=== PATIENT | female | born 1990 | race Caucasian/White ===

== ENCOUNTER 2018-11-06 20:54 | Inpatient (IN) | payer OTHER ==
[~2018-11-06] VITALS: Ht 180.3 cm; Wt 130.0 kg
--- NOTE | ~2018-11-06 | OR ---
[facility] [address] [place], [place] [address] Draft DATE OF OPERATION: 11/07/2018 SURGEON: Martha Colón MD EVENT MANAGEMENT CONSULTANT: Varun Dias MD PREOPERATIVE DIAGNOSES: Term , arrest of descent, and morbid obesity. POSTOPERATIVE DIAGNOSES: Term , arrest of descent, morbid obesity, delivered. PROCEDURE: Primary section with low segment transverse uterine incision with a J extension. ANESTHESIA: Epidural. ESTIMATED BLOOD LOSS: 700 mL. DRAINS: Ndiaye catheter. INDICATIONS AND FINDINGS: The patient is a 28-year-old female, 1, para 0, who was admitted in active labor at 39 weeks. Patient's course was complicated by her weight gain as well as a severe anxiety disorder with PTSD. The patient received an epidural during her labor. She progressed nicely to complete. After reaching complete, she did not push well and was unable to comply with pushing well. Patient then stated that she could not push anymore and requested section. She was counseled and PARQ done, and the section was done per her request. She was delivered of a little girl via lower segment transverse uterine incision, but with a J extension. The baby was in the ROT position, but with a deep transverse arrest. The head could not be elevated and the baby was ultimately delivered as a breech with Apgars of 4, 8, and 9. Cord gases were done, which were . The uterus, tubes, ovaries, and placenta otherwise appeared normal. DESCRIPTION OF PROCEDURE: PATIENT NAME: KI SIMPSON OPERATIVE REPORT DATE OF : [birth year] REPORT #: [id number] PHYSICIAN: MARTHA COLÓN MD PCP: MARTHA COLÓN MD REPORT IS CONFIDENTIAL AND NOT TO BE RELEASED WITHOUT AUTHORIZATION [facility] [address] [place] [address] Draft The patient was prepped and draped in the supine position. A Pfannenstiel skin incision was made and carried down through the fascia. The incision was extended laterally. The inferior and superior fascial flaps were then created. The muscles were bluntly divided and the peritoneum was opened bluntly, and the incision extended superiorly and inferiorly. The Moris retractor was placed. Inspection of the uterine wall showed that there was some narrowing just above the peritoneal reflection consistent with a Bandl's band. The incision was made at the upper aspect of the peritoneal reflection on the uterus. An attempt was made to bring the baby's head out of the pelvis, but this could not be accomplished secondary to the deep arrest. Subsequently to this, the Moris retractor was removed and a small J was made on the patient's left side. At that point, the baby was delivered as a breech and handed off to the pediatric staff in attendance. Following this, the placenta was removed manually. The uterus was explored with a lap tape assuring no remaining fragments. The edges of the incision were identified and the uterus was closed in 2 layers using #0 Monocryl. The first layer was a running locking stitch and the second was a vertical imbricating stitch. Additional sutures required J extension for control of bleeding. The abdomen was then copiously irrigated, inspected, and found to be hemostatic. The retractor was removed again and an ACell graft was laid over the lower segment to aid in healing. The peritoneum was identified and it was then closed with a running suture of 3-0 Vicryl. The muscles were brought together with interrupted sutures of 0 Vicryl. Bleeding points were controlled with cautery. This layer was then irrigated and good hemostasis was noted. The ACell powder was sprinkled over the muscles to aid in healing at this point. The fascia was then closed from each angle to the midline. The subcutaneous tissue was irrigated and bleeding points controlled with cautery. Because of the depth of the subcu another ACell powder was sprinkled in the subcu space to aid in healing. The deep space was closed with interrupted sutures of 3-0 Vicryl. The skin was closed with ida. All sponge and needle counts were correct. She tolerated the procedure well and was taken to the recovery room in good condition. MD SOURAV Erwin/MODL /[id number] cc: Varun Dias MD PATIENT NAME: KI SIMPSON OPERATIVE REPORT DATE OF : [birth year] REPORT #: [id number] PHYSICIAN: MARTHA COLÓN MD PCP: MARTHA COLÓN MD REPORT IS CONFIDENTIAL AND NOT TO BE RELEASED WITHOUT AUTHORIZATION [address] [address] [facility] Copies: VARUN DIAS MD ~ PATIENT NAME: KI SIMPSON OPERATIVE REPORT DATE OF : 86 REPORT #: [id number] PHYSICIAN: MARTHA COLÓN MD PCP: MARTHA COLÓN MD REPORT IS CONFIDENTIAL AND NOT TO BE RELEASED WITHOUT AUTHORIZATION
[~2018-11-06 20:54] MED LIST: CLONIDINE HCL0.1 MG PO; ESCITALOPRAM OX20 MG PO; METOCLOPRAMIDE H5 M1 PO; NEXIUM 24HR20 M3 PO; PRAZOSIN HCL5 MG PO; VALTREX500 MG PO; WELLBUTRIN XL300 MG PO
--- NOTE | 2018-11-06 23:15 | PR ---
[facility] [address] [facility] [place], [place] [address] Signed Progress Notes IP Datetime Report Generated by CPN: 11/06/2018 23:15 PROGRESS NOTES: [id number] Impression: Normal progression of labor Procedures: Artificial ROM; Sterile Vag Exam Plan: Continue present management Informed Consent Obtain: Vaginal Delivery; Risks, Benefits and Alternatives Discussed VITAL SIGNS: [id number] Vital Signs: Reviewed; Within Normal Limits VS Notable Details: recent hypotension EXAM: [id number] Dilatation: 9.0 Effacement: 100 Station: -1 Uterine Contractions: q 1 to 4 min MEMBRANES: [id number] Membrane Status: Ruptured Amniotic Fluid Color: Clear ROM Note: AROM of forebag with small amount of mec Comments: Progressing. Will continue. Fetus A: [id number] FHR Baseline: 170 Variability: Moderate 6-25bpm Accelerations: None Decelerations: Late FHR Category: Category II Presentation: Vertex Comments on Fetus A: will continue close observation as variability remains mod Fetus B: [id number] Signing Physician: Martha Colón MD Copies: ~ *Electronically Signed* 11/06/18 4131 MARTHA COLÓN MD PATIENT NAME: KI SIMPSON PROGRESS NOTE DATE OF : 88 PHYSICIAN: MARTHA COLÓN MD RPT #: [id number] REPORT IS CONFIDENTIAL AND NOT TO BE RELEASED WITHOUT AUTHORIZATION
--- NOTE | 2018-11-07 02:04 | PR ---
[facility] [address] [place], [place] [address] Signed Progress Notes IP Datetime Report Generated by KRAIG: 11/07/2018 02:03 PROGRESS NOTES: [id number] Impression: Reassuring heart rate; Slow Progression of Labor Procedures: Sterile Vag Exam Plan: Continue present management Informed Consent Obtain: Vaginal Delivery; Risks, Benefits and Alternatives Discussed VITAL SIGNS: [id number] Vital Signs: Reviewed; Within Normal Limits VS Notable Details: recent hypotension EXAM: [id number] Dilatation: 10.0 Effacement: 100 Station: -2 Uterine Contractions: q 1 to 3 min MEMBRANES: [id number] Membrane Status: Ruptured Amniotic Fluid Color: Clear ROM Note: AROM of forebag with small amount of mec Comments: Currently decreased variability but recent accels. Will begin pushing and continue close observation of status. It is not clear at this time if she will be able to deliver vaginally. Fetus A: [id number] FHR Baseline: 170 Variability: Minimal - Undetectable to <5bpm Accelerations: 15X15 Decelerations: Late FHR Category: Category II Presentation: Vertex Comments on Fetus A: nonrepetitive late decel. Fetus B: [id number] Signing Physician: Martha Colón MD Copies: ~ *Electronically Signed* 11/07/18 0203 MARTHA COLÓN MD PATIENT NAME: KI SIMPSON PROGRESS NOTE DATE OF : 86 PHYSICIAN: MARTHA COLÓN MD RPT #: [id number] REPORT IS CONFIDENTIAL AND NOT TO BE RELEASED WITHOUT AUTHORIZATION
--- NOTE | 2018-11-07 03:45 | PR ---
[facility] [address] [place], [place] [address] Signed Progress Notes IP Datetime Report Generated by KRAIG: 11/07/2018 03:45 PROGRESS NOTES: [id number] Impression: Arrest of dilatation/descent; Reassuring heart rate Procedures: Sterile Vag Exam Plan: Deliver- Section Informed Consent Obtain: Section Delivery; Risks, Benefits and Alternatives Discussed VITAL SIGNS: [id number] Vital Signs: Reviewed VS Notable Details: maternal tachycardia EXAM: [id number] Dilatation: 10.0 Effacement: 100 Station: -1 Uterine Contractions: q 1 to 3 min MEMBRANES: [id number] Membrane Status: Ruptured Amniotic Fluid Color: Clear ROM Note: AROM of forebag with small amount of mec Comments: Not much descent with pushing and pt exhausted and does not wish to continue. She wishes to proceed with C/S. Given status, I do not feel it reasonable to continue to push and C/S is indicated. I do not feel a vacuum assisted delivery is appropriate at this time either. PARQ done and pt wishes to continue on to C/S. Fetus A: [id number] FHR Baseline: 185 Variability: Moderate 6-25bpm Accelerations: None Decelerations: Late FHR Category: Category II Presentation: Vertex Comments on Fetus A: continued tachycardia, intermittent lates Fetus B: [id number] Signing Physician: Martha Colón MD Copies: *Electronically Signed* 11/07/18 0345 MARTHA COLÓN MD PATIENT NAME: KI SIMPSON PROGRESS NOTE DATE OF : 86 PHYSICIAN: MARTHA COLÓN MD RPT #: [id number] REPORT IS CONFIDENTIAL AND NOT TO BE RELEASED WITHOUT AUTHORIZATION [address] [address] Signed ~ *Electronically Signed* 11/07/18 0345 MARTHA COLÓN MD PATIENT NAME: KI SIMPSON PROGRESS NOTE DATE OF : [birth year] PHYSICIAN: MARTHA COLÓN MD RPT #: [id number] REPORT IS CONFIDENTIAL AND NOT TO BE RELEASED WITHOUT AUTHORIZATION
--- NOTE | 2018-11-07 05:47 | NUR ---
11/07/18 0547 Joanne Iniguez 0590 PT ARRIVED TO PACU, MOM AWAKE TALKING WITH STAFF. VITALS STABLE. O2 ON RA. MOTHER AT BEDSIDE. DENIES PAIN AND NAUSEA. 0535 PT DOING WELL. VITALS STABLE. DENIES PAIN AND NAUSEA. PT ABLE TO MOVE FEET AND LEGS. PT DENIES FEELING AT THE NIPPLE LINE. BABY AT BREAST, FBC RN IN ROOM.
[2018-11-07] MEDS ORDERED: DIPHENHIST25 M1 PO (09:16)
[2018-11-07] MEDS ORDERED: TRAZODONE HCL100 MG PO (09:17)
[2018-11-07] MEDS ORDERED: PRENATABS RX T1 EACH PO (09:38)
--- NOTE | 2018-11-08 08:55 | PR ---
[facility] [address] [facility] [place], [place] [address] Signed PP Progress Notes Datetime Report Generated by CPN: 11/08/2018 08:55 SUBJECTIVE: [id number] Pain: Within normal limits Nausea/Vomiting: Denies Vital Signs: [id number] Vital Signs: Reviewed; Within Normal Limits EXAM: [id number] Cardiovascular: Normal Respiratory: Normal Abdomen/Uterus: Abnormal Lochia: Normal Vulva/Perineum: Not Done Breasts: Not Done CVA Tenderness: Not Done Extremities: Normal Incision: Normal Progress: Normal Exam Comments: Abdomen with active BS. Fundus firm, NT @ U-1. H/H 10.5/32.4, WBC 10, plat 289k IMPRESSION/PLAN/PROCEDURES: [id number] Impression: Normal progression Plan: Continue present management Other Plans: shower, ambulate Progress Notes: Doing well. Will increase activity and shower. Signing Physician: Martha Colón MD Copies: ~ *Electronically Signed* 11/08/18 0855 MARTHA COLÓN MD PATIENT NAME: KI SIMPSON PROGRESS NOTE DATE OF : 86 PHYSICIAN: MARTHA COLÓN MD RPT #: [id number] REPORT IS CONFIDENTIAL AND NOT TO BE RELEASED WITHOUT AUTHORIZATION
--- NOTE | 2018-11-09 08:24 | PR ---
[facility] [address] [facility] [place], [place] [address] Signed PP Progress Notes Datetime Report Generated by CPN: 11/09/2018 08:24 SUBJECTIVE: [id number] Pain: Within normal limits Nausea/Vomiting: Denies Flatus: Yes Bowel Movement: Yes Vital Signs: [id number] Vital Signs: Reviewed; Within Normal Limits EXAM: [id number] Cardiovascular: Normal Respiratory: Not Done Abdomen/Uterus: Abnormal Lochia: Normal Vulva/Perineum: Not Done Breasts: Not Done CVA Tenderness: Not Done Extremities: Normal Incision: Normal Progress: Normal Exam Comments: Abdomen with active BS. Fundus firm, NT @ U-1. IMPRESSION/PLAN/PROCEDURES: [id number] Impression: Normal progression Plan: Discharge Other Plans: shower, ambulate Procedures: Rhogam Progress Notes: Doing well overall. She is ready for D/C. Signing Physician: Martha Colón MD Copies: ~ *Electronically Signed* 11/09/18 0824 MARTHA COLÓN MD PATIENT NAME: KI SIMPSON PROGRESS NOTE DATE OF : 86 PHYSICIAN: MARTHA COLÓN MD RPT #: [id number] REPORT IS CONFIDENTIAL AND NOT TO BE RELEASED WITHOUT AUTHORIZATION
== END 2018-11-09 11:10 | disposition home or self-care (01) | DRG 787 ==
LOC: FBCO 20:54 → FBC 21:07 → MS 11-08 12:24 → FBC 11-08 12:24
PROVIDERS: ADMIT Obstetrics & Gynecology
PROC: 10907ZC Drainage of Amniotic Fluid, Therapeutic from Products of Conception, Via Natural or Artificial Opening (ICD-10-PCS; 2018-11-06)
PROC: 00HU33Z Insertion of Infusion Device into Spinal Canal, Percutaneous Approach (ICD-10-PCS; 2018-11-06)
PROC: 3E0R3BZ Introduction of Anesthetic Agent into Spinal Canal, Percutaneous Approach (ICD-10-PCS; 2018-11-06)
PROC: 10D00Z1 Extraction of Products of Conception, Low, Open Approach (ICD-10-PCS; principal; 2018-11-07 04:25)
PROC: 3E0234Z Introduction of Serum, Toxoid and Vaccine into Muscle, Percutaneous Approach (ICD-10-PCS; 2018-11-08)
DX: O62.1 Secondary uterine inertia (principal); O98.32 Other infections with a predominantly sexual mode of transmission complicating childbirth; Z3A.39 39 weeks gestation of pregnancy; Z37.0 Single live birth; O32.4XX0 Maternal care for high head at term, not applicable or unspecified; O26.03 Excessive weight gain in pregnancy, third trimester; O99.214 Obesity complicating childbirth; E66.01 Morbid (severe) obesity due to excess calories; O76 Abnormality in fetal heart rate and rhythm complicating labor and delivery; O99.344 Other mental disorders complicating childbirth; F41.9 Anxiety disorder, unspecified; O99.62 Diseases of the digestive system complicating childbirth; K21.9 Gastro-esophageal reflux disease without esophagitis; O77.0 Labor and delivery complicated by meconium in amniotic fluid; O99.824 Streptococcus B carrier state complicating childbirth; O32.2XX0 Maternal care for transverse and oblique lie, not applicable or unspecified; A60.00 Herpesviral infection of urogenital system, unspecified; O26.893 Other specified pregnancy related conditions, third trimester; O28.2 Abnormal cytological finding on antenatal screening of mother; Z67.11 Type A blood, Rh negative; Z79.899 Other long term (current) drug therapy
CPT/HCPCS: 01961; 36415; 82803; 83030; 85027; 86850; 86900; 86901; J0690; J1644; J2540; J2590; J2790; J7060; J7120

== ENCOUNTER 2023-02-18 07:03 | Day surgery (SDC) | payer OTHER ==
[2023-02-16 09:24] VITALS: BP 119/83
[~2023-02-18] VITALS: Ht 180.3 cm; Wt 122.7 kg
[~2023-02-18 07:03] MED LIST changes: +DIPHENHIST25 M1 PO; +FLOMAX0.4 MG PO; +HYDROCODON-ACE1 EA10 PO; +KETOROLAC TROME10 MG PO; +OMEPRAZOLE20 MG PO; +ONDANSETRON ODT8 MG PO; +PRENATABS RX T1 EACH PO; +TRAZODONE HCL100 MG PO
[2023-02-18 07:27] VITALS: BP 112/69
--- NOTE | 2023-02-18 07:39 | NUR ---
COMFORTABLE. VISITING WITH SISTER. DENIES ANY NEEDS.
--- NOTE | 2023-02-18 07:56 | NUR ---
PT DENINED NEEDS. ACCOMPANIED BY SISTER. GAVE SISTER PAGER NUMBER 1. DECLINED PRAYER.
--- NOTE | 2023-02-18 10:19 | NUR ---
02/18/23 Eleni9 Shana Villanueva 1010 PT TO PACU SLEEPING ORAL AIRWAY IN PLACE JAW THRUST NEEDED TO MAINTAIN AIRWAY, O2 AT 10L VIA MASK FOGGING NOTED IN MASK.
[2023-02-18 11:06] VITALS: BP 114/61
--- NOTE | 2023-02-18 11:26 | NUR ---
C/O CONTINUED NAUSEA RX GIVEN.
[2023-02-18 12:01] VITALS: BP 109/70
--- NOTE | 2023-02-18 12:04 | NUR ---
CONTINUES TO C/O NAUSEA AFTER ZOFRAN GIVEN. REQUESTS SCRIPT TO GO HOME WITH. DR JORDAN CALLED AND TO CALL IN ZOFRAN, DONE TO JOB.
--- NOTE | 2023-02-18 12:22 | NUR ---
RATES PAIN 7/10 WITH NAUSEA DILAUDID GIVEN IV. AMB TO BR PRIOR TO RX VOIDS 400MLS DARK URINE. RAILS UP ON BED.
[2023-02-18 13:09] VITALS: BP 121/75
--- NOTE | 2023-02-18 13:12 | NUR ---
1250 STATES READY TO GO HOME IS FEELING MUCH IMPROVED. NO NAUSEA PAIN /. GETTING DRESSED.
--- NOTE | 2023-02-18 15:21 | OR ---
[facility] [address] [place], [place] [address] Signed DATE OF OPERATION: 02/18/2023 SURGEON: Syed Jordan MD PREOPERATIVE DIAGNOSIS: Chronic cholecystitis with cholelithiasis. POSTOPERATIVE DIAGNOSIS: Chronic cholecystitis with cholelithiasis. PROCEDURE: Laparoscopic cholecystectomy with intraoperative cholangiogram. ESTIMATED BLOOD LOSS: None. FINDINGS: Shanika indeed had a stone a little over a centimeter in length in the neck of her gallbladder. She had some chronic inflammatory changes down around the triangle of Calot, although mild. The intraoperative cholangiogram was unremarkable. INDICATIONS: Shanika is a 33-year-old female with a body mass index of 38. She describes a history of kidney stones requiring lithotripsy in the past. When she developed pain from her gallstones she knew immediately it was different. She had epigastric abdominal pain radiating through to her back with nausea and vomiting. She had been in the emergency room for evaluation. She was found to have cholelithiasis, but unremarkable liver function tests. She had also been to the urgent care clinic and an ultrasound again confirmed her cholelithiasis with an unremarkable common bile duct. She appears to have some fatty liver as well. Her gallbladder was a little contracted, and therefore the gallbladder wall was slightly thickened. She had been asked to see me by her primary care provider. In the office, I gave her a brochure on the gallbladder. We reviewed the location and function of the gallbladder. We reviewed laparoscopic versus open cholecystectomy, she understands expected intraop and postop course. There is risk including, but not limited to bleeding, infection, scarring, change in contour of the skin, damage to bowel, damage to main bile duct, incisional hernias and other unforeseen comorbidities. She had expressed understanding and wished to proceed. DESCRIPTION OF PROCEDURE: I met with Shanika and her mom and sister in our preop area. After answering her Electronically Signed By: SYED JORDAN MD 02/18/23 1521 PATIENT NAME: SHANIKA DRAKE OPERATIVE REPORT DATE OF : 86 REPORT #: [id number] PHYSICIAN: SYED JORDAN MD PCP: PILAR ELIAS NP REPORT IS CONFIDENTIAL AND NOT TO BE RELEASED WITHOUT AUTHORIZATION [facility] [address] [place], [place] [address] Signed questions, we took Shanika into the operating room. She was placed in the supine position under general endotracheal tube anesthesia. She was given preoperative antibiotics along with subcutaneous heparin. SCDs were utilized. She was prepped and draped in the usual sterile fashion. All trocars were placed in usual positions under direct visualization of camera without difficulty. We took pictures throughout for photodocumentation. The gallbladder had been grasped and elevated in the right upper quadrant. She had few adhesions of the duodenum to the neck of the gallbladder. These were taken down bluntly. The triangle of Calot was dissected free bluntly. We placed a clip across the cystic artery and it was divided. We then placed our intraoperative cholangiocatheter into the cystic duct. The intraoperative cholangiogram was found to be unremarkable. There were no filling defects. The contrast flowed nicely into the duodenum. After this, we secured the cystic duct stump with a PDS Endoloop along with two clips to reece its location. The gallbladder was then carefully removed from the gallbladder fossa with the help of the cautery and placed into an EndoCatch bag. The right upper quadrant was irrigated and suctioned out until clear. We then closed the subxiphoid trocar site with our laparoscopic suturing device using 0-Vicryl suture x1. After this, all the gas was allowed to escape and the trocars were removed along with the gallbladder. The gallbladder had been opened on the back table by our circulating nurse for photodocumentation. She had a single oval shaped stone at least a centimeter in length. After this, we closed the fascia of the supraumbilical trocar site with interrupted [id number] and simple 0-Vicryl sutures. Local anesthetic was injected into all trocar sites. Each trocar site was irrigated and suctioned out until clear. The skin and dermis of each trocar site were closed with interrupted 3-0 subcuticular Monocryl sutures. Dry gauze and tape was applied to all incisions. After this, Shanika was weaned from anesthesia, extubated in the OR, and taken to recovery room in stable condition. Syed Jordan MD ALB/MODL /[id number] cc: Pilar Elias Patient Chart Electronically Signed By: SYED JORDAN MD 02/18/23 1521 PATIENT NAME: SHANIKA DRAKE ANN OPERATIVE REPORT DATE OF : 86 REPORT #: [id number] PHYSICIAN: SYED JORDAN MD PCP: PILAR ELIAS NP REPORT IS CONFIDENTIAL AND NOT TO BE RELEASED WITHOUT AUTHORIZATION [facility] [address] [place], [place] [address] Signed Syed Jordan MD Copies: SYED JORDAN MD ~ Electronically Signed By: SYED JORDAN MD 02/18/23 1521 PATIENT NAME: SHANIKA DRAKE ANN OPERATIVE REPORT DATE OF : 86 REPORT #: [id number] PHYSICIAN: SYED JORDAN MD PCP: PILAR ELIAS NP REPORT IS CONFIDENTIAL AND NOT TO BE RELEASED WITHOUT AUTHORIZATION
--- NOTE | 2023-02-20 12:18 | PATH ---
[facility] [address] [facility] [place] [address] Signed SPECIMEN(S): A GALLBLADDER WITH STONE SPECIMEN SOURCE: A. GALLBLADDER WITH STONE CLINICAL HISTORY: Cholelithiasis/cholecystitis. FINAL PATHOLOGIC DIAGNOSIS: Gallbladder with stone: - Chronic calculous cholecystitis. - Mucosal cholesterolosis. JVR:smhC:2NR MICROSCOPIC EXAMINATION: Histologic sections of all submitted blocks are examined by light microscopy. These findings, together with the gross examination, support the pathologic diagnosis. GROSS DESCRIPTION: The specimen, labeled and designated "Tias, A" and designated on the requisition "gallbladder with stone," is received in formalin and consists of Specimen: Previously opened gallbladder. Dimensions: 7.8 x 5.2 x 1.4 cm. Serosa: Dobson-mahoney smooth. Cystic Duct: Unobstructed, margin inked black and shaved. Calculi: One green calculus (2.2 x 1.8 x 1.8 cm). Mucosa: Brown-mahoney and velvety with yellow flecking. Wall thickness: 0.7 cm. Lymph node: No pericystic lymph nodes are grossly identified. Additional: None. Radiological Technician sections are submitted in (A1). AC (under the direct supervision of a pathologist) The Gross Description was prepared using a voice recognition system. The report was reviewed for accuracy; however, sound-alike word errors, addition and/or deletions may occur. If there is any question about this report, please contact Client Services. PERFORMING LABORATORY: Technical component was performed by [facility], [address] [place] [id number] (CLIA# [id number]). Professional interpretation was PATIENT NAME: KI DRAKE ANN PATHOLOGY DATE OF : 86 REPORT #: [id number] PHYSICIAN: [facility] PCP: ALMA ROSA MORALES NP REPORT IS CONFIDENTIAL AND NOT TO BE RELEASED WITHOUT AUTHORIZATION [facility] [address] [facility] [place] [address] Signed performed by [facility] [address] [place] [address] (CLIA#: [id number]). Diagnostician: Miguelangel Knowles MD Pathologist Electronically Signed 02/20/2023 Copies: ~ PATIENT NAME: KI DRAKE ANN PATHOLOGY DATE OF : 86 REPORT #: [id number] PHYSICIAN: [facility] PCP: ALMA ROSA MORALES REPAIR MECHANIC REPORT IS CONFIDENTIAL AND NOT TO BE RELEASED WITHOUT AUTHORIZATION
== END 2023-02-18 12:50 | disposition home or self-care (01) ==
LOC: DS 07:03
PROVIDERS: ATTEND Colon & Rectal Surgery
PROC: BF00YZZ Plain Radiography of Bile Ducts using Other Contrast (ICD-10-PCS; 2023-02-18)
PROC: 0FT44ZZ Resection of Gallbladder, Percutaneous Endoscopic Approach (ICD-10-PCS; principal; 2023-02-18 08:30)
DX: K80.10 Calculus of gallbladder with chronic cholecystitis without obstruction (principal); E66.9 Obesity, unspecified; F32.A Depression, unspecified; F41.9 Anxiety disorder, unspecified; K21.9 Gastro-esophageal reflux disease without esophagitis; Z68.38 Body mass index [BMI] 38.0-38.9, adult; Z79.899 Other long term (current) drug therapy
CPT/HCPCS: 00790; 74300; J0330; J0690; J1100; J1170; J1644; J1885; J2250; J2405; J2704; J2765; J3010; J7121; Q9967